=== PATIENT | female | born 1940 | race Caucasian/White ===

== ENCOUNTER 2018-02-27 10:46 | Emergency (ER) | payer MEDICARE, MEDICAID, OTHER ==
[2018-02-27] MEDS: IBUPROFEN 800 MG TAB PO (11:56)
== END 2018-02-27 13:10 | disposition home or self-care (01) ==
LOC: E/R 13:10
DX: S09.90XA Unspecified injury of head, initial encounter (principal); S20.211A Contusion of right front wall of thorax, initial encounter; J45.909 Unspecified asthma, uncomplicated; W01.190A Fall on same level from slipping, tripping and stumbling with subsequent striking against furniture, initial encounter; Y92.9 Unspecified place or not applicable
CPT/HCPCS: 70450; 71250; 99284-25